=== PATIENT | male | born 1945 | race Two or more races ===

== ENCOUNTER 2017-06-07 09:21 | Emergency (ER) | payer MEDICARE ==
[2017-06-07 09:26] VITALS: BP 113/75
--- NOTE | 2017-06-07 12:10 | ED ---
Throat Pain/Nasal Congestion - HPI Summary HPI Summary: 72 male presents with son with complaints of right hearing loss and irritation. Patient states this began 2 days ago and has not improved. Patient sees Dr Wynne and was told ~3 years ago that he had 30% hearing loss in right ear. States over the past few years he sometimes has some hearing loss and plugging of his right ear that he believes is from water that will last for a couple hours and go away. However this hearing loss/ear plugging has not resolved over 2 days. Denies any known FB and discharge in ear. No fever/chills. No other complaints. No dizziness or headache. No PMHx other than lumbar radiculopathy, arthritis. No medications prior to arrival for ear. - History of Current Complaint Chief Complaint: EDEarPain Time Seen by Provider: 06/07/17 11:16 Hx Obtained From: Patient, Family/Supervisor [employer] - son Onset/Duration: Sudden Onset, Lasting Days - 2, Still Present Severity: Mild Cough: None - Allergies/Home Medications Allergies/Adverse Reactions: Allergies Allergy/AdvReac Type Severity Reaction Status Date / Time No Known Allergies Allergy Verified 08/09/15 11:21 PMH/Surg Hx/FS Hx/Imm Hx Endocrine/Hematology History: Denies: Hx Diabetes Cardiovascular History: Reports: Hx Hypercholesterolemia Denies: Hx Angina, Hx Coronary Artery Disease, Hx Hypertension, Hx Myocardial Infarction, Hx Pacemaker/ICD, Hx Valvular Heart Disease Respiratory History: Reports: Hx Sleep Apnea Denies: Hx Asthma, Hx Chronic Obstructive Pulmonary Disease (COPD) GI History: Reports: Hx Gastroesophageal Reflux Disease - ON MEDICATION FOR History: Reports: Other Problems/Disorders - prostate ca 12 Goldy AGO Musculoskeletal History: Reports: Hx Arthritis - LOWER BACK Sensory History: Reports: Hx Contacts or Glasses Denies: Hx Hearing Aid Opthamlomology History: Reports: Hx Contacts or Glasses Neurological History: Reports: Other Neuro Impairments/Disorders - HX OF BIPOLAR DISORDER. PAIN CLINIC PT. Psychiatric History: Reports: Hx Anxiety, Hx Bipolar Disorder Denies: Hx Panic Disorder - Cancer History Cancer Type, Location and Year: PROSTATE CANCER - Surgical History Surgery Procedure, Year, and Place: PROSTATECTOMY;PENILE IMPLANT - (NEED XRAYS FIRST PER DR. WALLACE - SURGERY WAS DONE APPROX 20 YRS AGO IN [place] AND PT HAS NO RECORDS IF NO METAL ON XRAY 1.5T ONLY.)*PT HAD X-RAYS; PENILE IMPLANT DOES HAVE METAL, NOT SAFE* Hx Anesthesia Reactions: No - Immunization History Immunizations Up to Date: Yes Infectious Disease History: Denies: Traveled Outside the [place] in Last 30 Days - Family History Known Family History: Positive: None - Social History Alcohol Use: Rare Substance Use Type: Reports: None Smoking Status (MU): Former Smoker Amount Used/How Often: 1 PPD X ~10 YEARS Have You Smoked in the Last Year: No Review of Systems Constitutional: Negative Eyes: Negative Positive: Ear Ache - hearing loss, "plugging" right ear Cardiovascular: Negative Respiratory: Negative Gastrointestinal: Negative Neurological: Negative All Other Systems Reviewed And Are Negative: Yes Physical Exam Triage Information Reviewed: Yes Vital Signs On Initial Exam: Initial Vitals Temp Pulse Resp BP Pulse Ox 97.7 F 65 18 113/75 98 06/07/17 09:22 06/07/17 09:22 06/07/17 09:22 06/07/17 09:22 06/07/17 09:22 Vital Signs Reviewed: Yes Appearance: Positive: Well-Appearing, No Pain Distress, Well-Nourished Skin: Positive: Warm, Skin Color Reflects Adequate Perfusion, Dry. Negative: Cold, Numb, Soft, Erythema @ Head/Face: Positive: Normal Head/Face Inspection Eyes: Positive: EOMI, MATTHEW, Conjunctiva Clear ENT: Positive: Pharynx normal, TMs normal, Other - decreased hearing with whisper test in right ear. right ear canal cerumen/eczema and erythema noted, left ear canal eczema/dry canal. no FB or discharge, after irrigation of right ear cerumen, TM without preforation or infection. significant discharge ( cerumen and dry skin debris) still in canal after irrigation. hearing not improved. Negative: Pharyngeal erythema, Nasal congestion, TM bulging, TM dull , TM red, Tonsillar swelling, Trismus Neck: Positive: Supple, Nontender, No Lymphadenopathy Respiratory/Lung Sounds: Positive: Clear to Auscultation, Breath Sounds Present. Negative: Rales, Rhonchi, Tracheal Deviation, Wheezes Cardiovascular: Positive: Normal, RRR, Pulses are Symmetrical in both Upper and Lower Extremities. Negative: Murmur, Rub Abdomen Description: Positive: Nontender, Soft Bowel Sounds: Positive: Present Musculoskeletal: Positive: Normal, Strength/ROM Intact Neurological: Positive: Normal, Sensory/Motor Intact, Alert, Oriented to Person Place, Time Diagnostics - Vital Signs Vital Signs Temp Pulse Resp BP Pulse Ox 06/07/17 11:18 97.5 F 64 16 96 06/07/17 09:22 97.7 F 65 18 113/75 98 - Laboratory Lab Statement: Any lab studies that have been ordered have been reviewed, and results considered in the medical decision making process. EENT Course/Dx - Course Course Of Treatment: right ear was irrigated without complication. hearing however did not improve. No cerumen was removed from canal after 2 attempts of irrigation. due to apperance of ear canal will be given antibiotic drops. recomended use of debrox/moisturizing drops for ears. will follow up with Dr Wynne ENT. no emergent etiology at this time, no other symptoms. aware of worsening signs and symptoms. - Differential Diagnoses Differential Diagnoses: Cerumen Impaction, Otitis Externa, Otitis Media, Perforated TM - Diagnoses Provider Diagnoses: Hearing loss, right, Otitis externa of right ear Discharge - Discharge Plan Condition: Stable Disposition: HOME Prescriptions: Ciproflox/Dexameth OTIC.SUSP* [Ciprodex OTIC.SUSP*] 1 drop .SEE ORDER BID #1 [id number] Patient Education Materials: Cerumen Impaction (ED), Hearing Loss (ED), Otitis Externa (DC) Referrals: Diego Wynne MD [Medical Doctor] - Curtis Berrios MD [Primary Care Provider] - Additional Instructions: Use prescribed antibiotic drop in right ear as directed for infection. Use OTC moisturizing drops in left ear as desired. Refrain from putting things into the ear. Recommend taking claritin to help with fluid build up behind ear drum. Follow up with ENT next week. If new symptoms develop please seek medical attention sooner.
== END 2017-06-07 14:00 | disposition home or self-care (01) ==
LOC: ED 09:21
DX: H91.91 Unspecified hearing loss, right ear (principal); H60.91 Unspecified otitis externa, right ear; H92.01 Otalgia, right ear; Z87.891 Personal history of nicotine dependence
CPT/HCPCS: 99281